=== PATIENT | female | born 1980 | race Caucasian/White ===

== ENCOUNTER 2018-12-31 19:30 | Emergency (ER) | payer OTHER ==
[~2018-12-31] VITALS: Ht 160 cm; Wt 54.4 kg
[2018-12-31 20:12] VITALS: BP 123/79
--- NOTE | 2018-12-31 20:58 | NUR ---
CALLED [facility] FOR X-RAY READ.
== END 2018-12-31 21:42 | disposition home or self-care (01) ==
LOC: ER 19:33
DX: R09.89 Other specified symptoms and signs involving the circulatory and respiratory systems (principal); Z60.2 Problems related to living alone
CPT/HCPCS: 70360-TC